=== PATIENT | female | born 1955 | race Hispanic/Latino ===

== ENCOUNTER 2017-08-02 13:00 | Inpatient (IN) | payer BC ==
[2017-08-02 13:32] VITALS: BMI 29.8
[2017-08-09] MEDS ORDERED: Vancomycin HCl 1.5 GM in Sodium Chloride 0.9% 250 ML 300 ML IVPB SCH (06:00)
[2017-08-09] MEDS ORDERED: CEFAZOLIN/Water 2 GM/20 ML SYRINGE ONE (06:04)
[2017-08-09] MEDS ORDERED: Tranexamic Acid 1,000 MG/100 ML BAG ONE ×2 (06:16→08:32)
[2017-08-09] MEDS ORDERED: Midazolam HCl 2 mg/2 ml Vial ONE (06:17)
[2017-08-09] MEDS ORDERED: Fentanyl 100 MCG/2 ML VIAL ONE (06:17)
[2017-08-09] MEDS ORDERED: HYDROcodone/Acetaminophen 10/325 mg Tablet PO PRN ×2 (06:57)
[2017-08-09] MEDS ORDERED: Fentanyl 100 MCG/2 ML VIAL SLOW IVP PRN ×2 (06:57)
[2017-08-09] MEDS ORDERED: Zolpidem Tartrate 5 MG TAB PO PRN ×2 (06:57→09:15)
[2017-08-09] MEDS ORDERED: Ondansetron HCl/PF 4 MG/2 ML Vial IVP PRN ×3 (06:57→09:15)
[2017-08-09] MEDS ORDERED: traMADol HCl 50 MG TAB PO PRN ×3 (06:57→09:15)
[2017-08-09] MEDS ORDERED: Promethazine HCl 25 MG/ML VIAL IM PRN ×3 (06:57→09:15)
[2017-08-09] MEDS ORDERED: diphenhydrAMINE 25 MG CAP PO PRN ×2 (06:57→09:15)
[2017-08-09] MEDS ORDERED: Acetaminophen 325 MG TAB PO PRN (06:57)
[2017-08-09] MEDS ORDERED: Tranexamic Acid 1,000 MG in Sodium Chloride 0.9% 100 ML IVPB SCH (07:00)
[2017-08-09] MEDS ORDERED: Bupivacaine/Epinephrine 0.25% 30 ML VIAL ONE (07:49)
[2017-08-09] MEDS ORDERED: Promethazine HCl 25 MG/ML VIAL SLOW IVP PRN (08:30)
[2017-08-09] MEDS ORDERED: SUGAMMADEX SODIUM 200 MG/2 ML VIAL ONE (08:39)
--- NOTE | 2017-08-09 09:04 | OP ---
DATE OF PROCEDURE: 08/08/2017 TITLE OF PROCEDURE: Left total hip replacement. SURGEON: Shayne Jules M.D. [employer] REPAIRER: Leroy Peres PA-C. BLOOD LOSS: 200 mL. SPECIMEN: None. DRAINS: None. COMPLICATIONS: None. IMPLANTS USED: Leni Accolade 2.5 stem with a 36 mm +2.5 ceramic head, a 54 mm Tritanium cup, 36 m m X3 liner. PROCEDURE IN DETAIL: After informed consent was obtained in the preoperative holding area, the patie nt was taken to the operative suite where general anesthesia was induced. The patient was then posit ioned in the lateral decubitus position. The hip was then prepped and draped in usual sterile fashio n. The patient received preoperative antibiotics. Prior to incision, time-out was called and all me mbers of the surgical team agreed upon site, surgeon, and patient. After this, a longitudinal incisi on was made directly over the trochanter, noted by palpation extending 2 fingerbreadths above and bel ow the trochanter. The deeper subcutaneous layer was undermined with Bovie electrocautery. The ilio tibial band was encountered and incised sharply and the plane below this was developed bluntly. A [facility] retractor was placed to hold this opened. The lateral aspect of the trochanter and the abduct or muscles were encountered and then reflected anteriorly off the trochanter using Bovie electrocaute ry. Once this was completed, the anterior capsule was then encountered and identified and copious ca psulotomy was carried out, exposing the femoral neck and head. Dislocation maneuver was then performe d and an in situ provisional neck cut was then made using the oscillating saw. Attention was then tu rned to acetabular preparation and sequential reaming was carried out up to the appropriate diameter and a trial was then malleted into place with good firm resistance and no pullout. The permanent cuba tabular shell was then malleted squarely into place, as was the appropriate liner. Once completed, t he wound was copiously irrigated and attention was then turned to femoral preparation. Flexion and ex ternal rotation was performed of the exposed thigh and femoral elevators were then placed at the prox imal aspect of the wound. Canal finder was used to establish the length of the canal and sequential reaming was carried out, followed by broaching. Once the appropriate stability was established with the trial broaches with both flexion, extension and rotational stability, we did trial with neutral a nd 2 mm offset incremental necks. Once the appropriate size was decided upon, with good stability no alexia with flexion, extension, internal and external rotation and shuck being negative, we removed the femoral trial broach and malletted into place the permanent prosthesis with good firm fit, which was also stable to rotation. Again, the hip felt very stable to flexion, extension, internal and externa l rotation. Leg lengths appeared near anatomic clinically and we were quite happy with prosthesis pl acement. Copious irrigation was then carried out through the entirety of the wound. Primary closure of the abductors was accomplished with interrupted #2 Vicryl [id number] stitches and the IT ban d was then closed with interrupted #2 Vicryl, oversewn with a #2 running barbed Quill stitch. Subcut aneous fascia was closed with running barbed Quill stitch and a subcuticular Monocryl barbed Quill st itch was used for skin closure and augmented with skin cement. A sterile dressing was applied. The p rocedure was terminated without any complication. All counts were correct. The patient was awakened in the operative suite and taken to the recovery room in stable condition.
[2017-08-09] MEDS ORDERED: Promethazine HCl 25 MG SUPP PR PRN (09:15)
[2017-08-09] MEDS ORDERED: diphenhydrAMINE 50 MG/ML VIAL IM PRN (09:15)
[2017-08-09] MEDS ORDERED: Bupivacaine 0.25% 10 ML VIAL EPIDURAL PRN (09:15)
[2017-08-09] MEDS ORDERED: Naloxone HCl 0.4 mg/ml Vial IVP PRN (09:15)
[2017-08-09] MEDS ORDERED: Fentanyl/Bupivacaine 250 ML in Premix Bag 1 BAG EPIDURAL SCH (09:15)
[2017-08-09] MEDS ORDERED: Naloxone HCl 0.4 mg/ml Vial IV PRN (09:15)
[2017-08-09] MEDS ORDERED: Eucerin (Mineral Oil/Petrolatum,White) 30 gm Jar TOP PRN (09:15)
[2017-08-09] MEDS ORDERED: HYDROcodone/Acetaminophen 5/325 mg Tablet PO PRN ×2 (09:15)
--- NOTE | 2017-08-09 10:02 | RAD ---
TWO VIEWS LEFT HIP: Date: 08-09-17 Comparison: None. History: Evaluate hip following total hip arthroplasty. FINDINGS: The two provided images demonstrate post-operative gas lateral to the proximal left femur. There is a total hip arthroplasty on the left with no evidence for hardware failure. No acute fracture or dislocation. IMPRESSION: Status post left total hip arthroplasty. POS: [facility]
[2017-08-09] MEDS ORDERED: Glycopyrrolate 0.2 MG/ML 5 ML SYRINGE ONE (11:11)
[2017-08-09] MEDS ORDERED: ePHEDrine/0.9% NaCl/PF SYRINGE 50 mg/10 ml ONE (11:11)
[2017-08-09] MEDS ORDERED: Lidocaine 1% PF 5 ML VIAL ONE (11:11)
[2017-08-09] MEDS ORDERED: Propofol 200 MG/20 ML VIAL ONE (11:11)
[2017-08-09] MEDS: Aspirin 325 MG TAB PO SCH ×2 (11:32→21:10)
[2017-08-09] MEDS: Ferrous Gluconate 324 MG TAB PO SCH ×2 (11:32→21:11)
[2017-08-09] MEDS: Sodium Chloride 0.9% 1,000 ML IV SCH ×2 (11:32→18:09)
[2017-08-09] MEDS: Multivitamin W/ Minerals 1 TAB PO SCH (11:33)
[2017-08-09] MEDS: Propranolol HCl LA 60 MG CAP PO SCH (11:33)
[2017-08-09] MEDS: Senokot S 8.6-50 MG TAB PO SCH ×2 (11:33→21:11)
--- NOTE | 2017-08-09 12:53 | PDOC.PN ---
- Subjective Encounter Start Date: 08/09/17 Encounter Start Time: 12:53 Pt seen for management of medical comorbidities including tremor. No complaints. 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 Continue propranolol PRN IV hydralazine for BP spikes. Review of Systems - Review of Systems Respiratory: negative: Cough, Dry, Shortness of Breath, Hemoptysis, SOB with Excertion, Pleuritic Pain, Sputum, Wheezing Cardiovascular: negative: chest pain, palpitations, orthopnea, paroxysmal nocturnal dyspnea, edema, light headedness - Medications/Allergies Allergies/Adverse Reactions: Allergies Allergy/AdvReac Type Severity Reaction Status Date / Time neomycin Allergy Verified 08/02/17 13:32 Medications: Current Medications Acetaminophen (Tylenol) 650 mg PO Q4H PRN PRN Reason: CONDE/ T > 101F; Mild Pain (1-3) Hydrocodone Bitart/Acetaminophen ([place] 5/325) 1 tab PO Q4H PRN PRN Reason: Mild Pain 0-3 Hydrocodone Bitart/Acetaminophen ([place] 5/325) 2 tab PO Q4H PRN PRN Reason: For Moderate Pain 4-6 Aspirin (Aspirin) 325 mg PO BID [facility] Last Admin: 08/09/17 11:32 Dose: Not Given Bupivacaine HCl (Marcaine) 5 ml EPIDURAL ONE PRN PRN Reason: UNCONTROLLED PAIN Stop: 08/09/17 23:00 Cefazolin Sodium (Ancef) 2 gm SLOW IVP Q8H ILYA Stop: 08/09/17 23:31 Diphenhydramine HCl (Benadryl) 25 mg PO Q3H PRN PRN Reason: Itching Diphenhydramine HCl (Benadryl) 25 mg IM Q3H PRN PRN Reason: Itching Diphenhydramine HCl (Benadryl) 25 mg IVP Q3H PRN PRN Reason: Itching Ferrous Gluconate (Fergon) 324 mg PO BID [facility] Last Admin: 08/09/17 11:32 Dose: Not Given Sodium Chloride (Normal Saline 0.9%) 1,000 mls @ 100 mls/hr IV .Q10H [facility] Last Admin: 08/09/17 11:32 Dose: Not Given Fentanyl Citrate 250 ml/ (Device) 250 mls @ 6 mls/hr EPIDURAL INF [facility] Iron/Minerals/Multivitamins (Theragran M) 1 tab PO DAILY [facility] Last Admin: 08/09/17 11:33 Dose: Not Given Ketorolac Tromethamine (Toradol) 30 mg IVP Q6HR [facility] Stop: 08/11/17 06:01 Melatonin (Melatonin) 1.5 mg PO [facility] Mineral Oil/White Petrolatum (Eucerin Cream) 0 gm TOP PRN PRN PRN Reason: Itching Naloxone HCl (Narcan) 0.2 mg IV Q5MIN PRN PRN Reason: RR <=8 OR OBTUNDED/UNAROUSABLE Naloxone HCl (Narcan) 0.1 mg IVP Q15MIN PRN PRN Reason: URINARY RETENTION Ondansetron HCl (Zofran) 4 mg IVP Q6H PRN PRN Reason: Nausea/Vomiting Promethazine HCl (Phenergan) 12.5 mg IM Q4H PRN PRN Reason: Nausea Promethazine HCl (Phenergan Suppository) 25 mg [place] Q4H PRN PRN Reason: Nausea/Vomiting Propranolol HCl (Inderal La) 60 mg PO QAM [facility] Last Admin: 08/09/17 11:33 Dose: Not Given Senna/Docusate Sodium (Senokot S) 2 tab PO BID [facility] Last Admin: 08/09/17 11:33 Dose: Not Given Simethicone (Mylicon Chewable) 180 mg PO [facility] Sodium Chloride (Flush - Normal Saline) 10 ml IVF PRN PRN PRN Reason: Saline Flush Tramadol HCl (Ultram) 50 mg PO Q6H PRN PRN Reason: Mild Pain 1-3 Tramadol HCl (Ultram) 100 mg PO Q6H PRN PRN Reason: Moderate Pain 4-6 Zolpidem Tartrate (Ambien) 5 mg PO HSPRN PRN PRN Reason: Insomnia
[2017-08-09] MEDS ORDERED: hydrALAZINE 20 MG/ML VIAL SLOW IVP PRN (13:02)
[2017-08-09] MEDS ORDERED: Ketorolac Tromethamine 30 MG/ML VIAL IVP SCH (14:00)
[2017-08-09] MEDS: Ketorolac Tromethamine 30 MG/ML VIAL IVP SCH ×3 (15:07→23:52)
[2017-08-09] MEDS: CEFAZOLIN/Water 2 GM/20 ML SYRINGE SLOW IVP SCH ×2 (15:59→23:52)
[2017-08-09] MEDS: Melatonin 3 MG TAB PO SCH (21:11)
[2017-08-09] MEDS: Simethicone Chewable 80 MG TAB PO SCH (21:12)
[2017-08-09] MEDS: diphenhydrAMINE 50 MG/ML VIAL IVP PRN (22:13)
[2017-08-10] MEDS: Sodium Chloride 0.9% 1,000 ML IV SCH ×3 (04:26→21:08)
[2017-08-10 05:52] LABS: Hemoglobin 11.5 g/dL (12.0-16.0); Mean Corpuscular HGB CONC 33.9 g/dL (32.0-36.0); Mean Corpuscular Hemoglobin 33.9 pg (27.0-31.0); Mean Corpuscular Volume 99.9 fl (81.0-99.0); Mean Platelet Volume 8.2 fL (7.4-10.4); Platelet Count 193 thou/uL (130-400); RBC Distribution Width 11.8 % (11.5-14.5); White Blood Cell (WBC) Count 6.3 thou/uL (4.8-10.8)
[2017-08-10] MEDS: Ketorolac Tromethamine 30 MG/ML VIAL IVP SCH ×4 (06:46→23:19)
[2017-08-10] MEDS: Senokot S 8.6-50 MG TAB PO SCH ×2 (08:27→20:39)
[2017-08-10] MEDS: Aspirin 325 MG TAB PO SCH ×2 (08:27→20:39)
[2017-08-10] MEDS: Ferrous Gluconate 324 MG TAB PO SCH ×2 (08:27→20:39)
[2017-08-10] MEDS: Multivitamin W/ Minerals 1 TAB PO SCH (08:27)
[2017-08-10] MEDS: Propranolol HCl LA 60 MG CAP PO SCH (11:36)
--- NOTE | 2017-08-10 16:20 | PDOC.PN ---
- Subjective Encounter Start Date: 08/10/17 Encounter Start Time: 08:20 Pt seen for followup re: familial tremor. No complaints today. - Objective MAR Reviewed: Yes Vital Signs & Weight: Vital Signs (12 hours) Temp Pulse Resp BP Pulse Ox 08/10/17 11:19 97.5 F L 52 L 14 108/66 93 L 08/10/17 08:32 126/68 08/10/17 08:00 98.1 F 53 L 14 100 08/10/17 07:06 98.1 F 53 L 14 118/60 96 08/10/17 06:54 97.9 F 50 L 18 107/60 96 Weight Admit Weight 185 lb Weight 185 lb I&O: 08/09/17 08/10/17 08/11/17 06:59 06:59 06:59 Intake Total 1920 Output Total 2200 Balance -280 Result Diagrams: 08/10/17 04:14 Phys Exam - Physical Examination Constitutional: NAD HEENT: moist MMs Neck: supple Respiratory: clear to auscultation bilateral Cardiovascular: RRR Gastrointestinal: soft s/p L hip surgery Neurological: moves all 4 limbs Psychiatric: normal affect Dx/Plan (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 Continue propranolol. BP well controlled, continue to monitor vitals. Review of Systems - Review of Systems Respiratory: negative: Cough, Dry, Shortness of Breath, Hemoptysis, SOB with Excertion, Pleuritic Pain, Sputum, Wheezing Cardiovascular: negative: chest pain, palpitations, orthopnea, paroxysmal nocturnal dyspnea, edema, light headedness - Medications/Allergies Allergies/Adverse Reactions: Allergies Allergy/AdvReac Type Severity Reaction Status Date / Time neomycin Allergy Verified 08/02/17 13:32 Medications: Current Medications Acetaminophen (Tylenol) 650 mg PO Q4H PRN PRN Reason: CONDE/ T > 101F; Mild Pain (1-3) Hydrocodone Bitart/Acetaminophen ([place] 5/325) 1 tab PO Q4H PRN PRN Reason: Mild Pain 0-3 Hydrocodone Bitart/Acetaminophen ([place] 5/325) 2 tab PO Q4H PRN PRN Reason: For Moderate Pain 4-6 Aspirin (Aspirin) 325 mg PO BID [facility] Last Admin: 08/10/17 08:27 Dose: 325 mg Diphenhydramine HCl (Benadryl) 25 mg PO Q3H PRN PRN Reason: Itching Last Admin: 08/09/17 15:59 Dose: 25 mg Diphenhydramine HCl (Benadryl) 25 mg IM Q3H PRN PRN Reason: Itching Diphenhydramine HCl (Benadryl) 25 mg IVP Q3H PRN PRN Reason: Itching Last Admin: 08/09/17 22:13 Dose: 25 mg Ferrous Gluconate (Fergon) 324 mg PO BID [facility] Last Admin: 08/10/17 08:27 Dose: 324 mg Hydralazine HCl (Apresoline) 10 mg SLOW IVP Q6H PRN PRN Reason: SBP Greater Than 170 Sodium Chloride (Normal Saline 0.9%) 1,000 mls @ 100 mls/hr IV .Q10H [facility] Last Admin: 08/10/17 13:47 Dose: Not Given Fentanyl Citrate 250 ml/ (Device) 250 mls @ 6 mls/hr EPIDURAL INF [facility] Iron/Minerals/Multivitamins (Theragran M) 1 tab PO DAILY [facility] Last Admin: 08/10/17 08:27 Dose: 1 tab Ketorolac Tromethamine (Toradol) 30 mg IVP Q6HR [facility] Stop: 08/11/17 06:01 Last Admin: 08/10/17 11:37 Dose: 30 mg Melatonin (Melatonin) 1.5 mg PO HS [facility] Last Admin: 08/09/17 21:11 Dose: Not Given Mineral Oil/White Petrolatum (Eucerin Cream) 0 gm TOP PRN PRN PRN Reason: Itching Naloxone HCl (Narcan) 0.2 mg IV Q5MIN PRN PRN Reason: RR <=8 OR OBTUNDED/UNAROUSABLE Naloxone HCl (Narcan) 0.1 mg IVP Q15MIN PRN PRN Reason: URINARY RETENTION Ondansetron HCl (Zofran) 4 mg IVP Q6H PRN PRN Reason: Nausea/Vomiting Promethazine HCl (Phenergan) 12.5 mg IM Q4H PRN PRN Reason: Nausea Promethazine HCl (Phenergan Suppository) 25 mg [place] Q4H PRN PRN Reason: Nausea/Vomiting Propranolol HCl (Inderal La) 60 mg PO QAM [facility] Last Admin: 08/10/17 11:36 Dose: 60 mg Senna/Docusate Sodium (Senokot S) 2 tab PO BID [facility] Last Admin: 08/10/17 08:27 Dose: 2 tab Simethicone (Mylicon Chewable) 180 mg PO HS [facility] Last Admin: 08/09/17 21:12 Dose: Not Given Sodium Chloride (Flush - Normal Saline) 10 ml IVF PRN PRN PRN Reason: Saline Flush Last Admin: 08/10/17 08:29 Dose: 10 ml Tramadol HCl (Ultram) 50 mg PO Q6H PRN PRN Reason: Mild Pain 1-3 Tramadol HCl (Ultram) 100 mg PO Q6H PRN PRN Reason: Moderate Pain 4-6 Zolpidem Tartrate (Ambien) 5 mg PO HSPRN PRN PRN Reason: Insomnia
[2017-08-10] MEDS: Melatonin 3 MG TAB PO SCH (20:39)
[2017-08-10] MEDS: Simethicone Chewable 80 MG TAB PO SCH (20:39)
[2017-08-10] MEDS: diphenhydrAMINE 50 MG/ML VIAL IVP PRN (20:40)
[2017-08-11 05:20] LABS: Hemoglobin 11.4 g/dL (12.0-16.0); Mean Corpuscular HGB CONC 33.5 g/dL (32.0-36.0); Mean Corpuscular Hemoglobin 33.4 pg (27.0-31.0); Mean Corpuscular Volume 99.5 fl (81.0-99.0); Platelet Count 183 thou/uL (130-400); RBC Distribution Width 11.6 % (11.5-14.5); Red Blood Cell (RBC) Count 3.42 mill/uL (4.20-5.40); White Blood Cell (WBC) Count 7.3 thou/uL (4.8-10.8)
[2017-08-11] MEDS: Ketorolac Tromethamine 30 MG/ML VIAL IVP SCH (05:25)
[2017-08-11] MEDS ORDERED: HYDROcodone/Acetaminophen 10/325 mg Tablet PO PRN (07:16)
[2017-08-11] MEDS: Propranolol HCl LA 60 MG CAP PO SCH (09:06)
[2017-08-11] MEDS: Aspirin 325 MG TAB PO SCH (09:06)
[2017-08-11] MEDS: Ferrous Gluconate 324 MG TAB PO SCH (09:06)
[2017-08-11] MEDS: Multivitamin W/ Minerals 1 TAB PO SCH (09:06)
[2017-08-11] MEDS: Senokot S 8.6-50 MG TAB PO SCH (09:07)
[2017-08-11] MEDS: Sodium Chloride 0.9% 1,000 ML IV SCH (09:08)
[2017-08-11] MEDS: HYDROcodone/Acetaminophen 10/325 mg Tablet PO PRN ×2 (10:49→15:21)
[2017-08-11 12:08] VITALS: BP 123/61; TEMP 97.6
--- NOTE | 2017-08-12 13:31 | DIS ---
DATE OF ADMISSION: 08/09/2017 DATE OF DISCHARGE: 08/11/2017 PREOPERATIVE DIAGNOSIS: Left hip osteoarthritis/degenerative joint disease. DISCHARGE DIAGNOSES: Left hip osteoarthritis/degenerative joint disease. PROCEDURE: The patient underwent a left total hip replacement. HOSPITAL COURSE: Hospital stay was grossly unremarkable. The patient worked with physical therapy, occupational therapy, and [facility] staff and did quite well. By postoperative day 2, she was ready to discharge home. DISCHARGE CONDITION: Good/stable. DISPOSITION: Home with family. FOLLOWUP: Followup would be in 3-4 weeks, sooner if there are problems or concerns. DISCHARGE MEDICATIONS: Given with usage instructions. Leroy Peres PA-C for Dr. Shayne Jules.
== END 2017-08-11 15:41 | disposition home or self-care (01) | DRG 470 ==
LOC: SJJU 08-09 05:44
PROVIDERS: ADMIT Orthopaedic Surgery; ATTEND Orthopaedic Surgery
PROC: 0SRB03Z Replacement of Left Hip Joint with Ceramic Synthetic Substitute, Open Approach (ICD-10-PCS; principal; 2017-08-09)
PROC: 3E0T3BZ Introduction of Anesthetic Agent into Peripheral Nerves and Plexi, Percutaneous Approach (ICD-10-PCS; 2017-08-09)
DX: M16.12 Unilateral primary osteoarthritis, left hip (principal); G25.0 Essential tremor; Z88.1 Allergy status to other antibiotic agents; Z82.49 Family history of ischemic heart disease and other diseases of the circulatory system
CPT/HCPCS: 36415; 85027; 86850; 86900; 86901; G8978-GP-CL; G8979-GP-CJ; G8987-GO-CJ; G8988-GO-CI; J0131; J1200; J1885; J2001; J2250; J2704; J3010; J3370; J7050

== ENCOUNTER 2017-08-02 13:06 | Outpatient (CLI) | payer BC ==
--- NOTE | 2017-08-02 15:03 | RAD ---
CHEST TWO VIEWS: History: Pre op. Comparison: 11-18-16 FINDINGS: Cardiac silhouette and pulmonary vasculature are unremarkable. Mediastinum is midline. There is no co nfluent airspace consolidation, pneumothorax or pleural fluid apparent. Rightward convex curvature of the mid thoracic spine is similar in appearance to the previous exam. IMPRESSION: No active cardiopulmonary abnormalities are demonstrated. POS: [facility]
[2017-08-02 15:12] LABS: Bilirubin Negative (Negative); Blood, Urine Negative (Negative); Clarity CLEAR (Clear); Glucose, Urine (Dipstick) Negative (Negative); Leukocyte Trace (Negative); Nitrite Negative (Negative); Protein, Urine (Dipstick) Negative (Neg-Trace); Specific Gravity, Urine 1.015 (1.002-1.036); Urobilinogen 0.2 mg/dL (0.2-1.0); pH, Urine 7.5 (5.0-9.0)
[2017-08-02 15:15] LABS: #Eosinphils 0.1 thou/uL (0.0-0.7); #Lymphocytes 2.1 thou/uL (1.20-3.40); #Monocytes 0.3 thou/uL (0.11-0.59); #Neutrophils 2.6 thou/uL (1.40-6.50); %Basophils 0.8 % (0.0-1.0); %Eosinophils 1.8 % (0.0-10.0); %Lymphocytes 40.6 % (21.0-51.0); %Monocytes 5.6 % (0.0-10.0); %Neutrophils 51.2 % (42.0-75.0); Mean Corpuscular Hemoglobin 32.8 pg (27.0-31.0); Mean Corpuscular Volume 99.6 fl (81.0-99.0); Mean Platelet Volume 7.7 fL (7.4-10.4); Platelet Count 257 thou/uL (130-400); RBC Distribution Width 11.6 % (11.5-14.5); Red Blood Cell (RBC) Count 4.25 mill/uL (4.20-5.40); White Blood Cell (WBC) Count 5.1 thou/uL (4.8-10.8)
[2017-08-02 15:17] LABS: Bacteria/HPF None Seen HPF (None Seen); Hyaline Casts/LPF 0-3 HYALINE CAST LPF (0-3 Hyaline); Squamous Epithelial 0-3 HPF (0-3); WBC/HPF 0-3 HPF (0-3)
[2017-08-02 15:21] LABS: Prothrombin Time 13.3 SEC (12.0-14.7)
[2017-08-02 15:29] LABS: Anion Gap 12 mmol/L (10-20); BUN (Urea Nitrogen) 14 mg/dL (9.8-20.1); Calc. Creatinine Clearance 0 mL/min (70-130); Calcium 9.7 mg/dL (7.8-10.44); Carbon Dioxide 27 mmol/L (23-31); Chloride 104 mmol/L (98-107); Estimated GFR-MDRD 86; Glucose 87 mg/dL (80-115); Potassium 4.2 mmol/L (3.5-5.1); Sodium 139 mmol/L (136-145)
--- NOTE | 2017-08-26 16:38 | EKG ---
Test Reason : Blood Pressure : / mmHG Vent. Rate : 045 BPM Atrial Rate : 045 BPM P-R Int : 134 ms QRS Dur : 090 ms QT Int : 514 ms P-R-T Axes : 042 003 041 degrees QTc Int : 444 ms Marked sinus bradycardia Possible Left atrial enlargement Abnormal ECG When compared with ECG of 18-NOV-2016 14:41, No significant change was found Confirmed by DR. Alfie KC ([id number]) on 08/26/2017 4:37:39 PM Referred By: MARCELINA Confirmed By:DR. Alfie KC
== END 2017-08-02 13:07 | disposition home or self-care (01) ==
LOC: LABBT 13:06
PROVIDERS: ATTEND Orthopaedic Surgery
DX: Z01.818 Encounter for other preprocedural examination (principal); M16.12 Unilateral primary osteoarthritis, left hip
CPT/HCPCS: 71046; 80048; 81001; 85025; 85610; 85730; 87081; 93005; 93010

== ENCOUNTER 2021-04-20 14:04 | Outpatient (CLI) | payer BC | END 2021-04-20 14:05 | disposition home or self-care (01) | LOC: BICULT 14:04 | PROVIDERS: ATTEND Psychiatry & Neurology Neurology | DX: I65.29 Occlusion and stenosis of unspecified carotid artery (principal) | CPT/HCPCS: 93880 ==